=== PATIENT | female | born 1940 | race Caucasian/White ===

== ENCOUNTER 2021-07-03 19:48 | Inpatient (IN) | payer MEDICARE, OTHER ==
[~2021-07-03] VITALS: Ht 160 cm; Wt 71.7 kg
[~2021-07-03 19:48] MED LIST: ACET325S18 PO; ALBU2.5V13 INH; ALEN70TA80 PO; ASPI-605 PO; BISA-79 RC; CALC-167 PO; CHOL100040 PO; DEXT1CAP3 PO; DOCU100C36 PO; DULO60CA45 PO; GUAI-717 PO; IPRA0.2S49 INH; LEVO112T5 PO; MAGN400O21 PO; MULT-754 PO; SIME80TA14 PO; SIMV10TA98 PO; TRIA115C TP; TRIA80OI TP
--- NOTE | 2021-07-03 19:59 | NUR ---
PT BIBPA TO R/O TB. PT NONVERBAL AT BASELINE BREATHING EVENLY AND UNLABORED. PT ATTACHED TO MONITOR AND POX. MD AT BEDSIDE FOR EVAL. UPON ASSESSMENT,PT ON 2L O2 SATURATING 95%. PT GIVEN BLANKET AND CALL LIGHT WITHIN REACH
[2021-07-03 20:59] LABS: BASOPHILS # (AUTO) 0.1 K/uL (0.0-0.2); BASOPHILS % (AUTO) 1.2 % (0.0-2.0); EOSINOPHILS % (AUTO) 1.9 % (0.0-6.0); HEMATOCRIT 39 % (33-45); HEMOGLOBIN 12.7 g/dL (11.5-14.8); LYMPHOCYTES # (AUTO) 3.2 K/uL (0.8-4.8); LYMPHOCYTES % (AUTO) 30.2 % (20.0-44.0); MEAN CORPUSCULAR HGB CONC 33 g/dl (31.0-36.0); MEAN CORPUSCULAR VOLUME 96 fL (82-100); MONOCYTES # (AUTO) 0.5 K/uL (0.1-1.30); MONOCYTES % (AUTO) 4.6 % (2.0-12.0); NEUTROPHILS # (AUTO) 6.6 K/uL (1.8-8.9); NEUTROPHILS % (AUTO) 62.1 % (43.0-81.0); PLATELET COUNT (AUTO) 231 K/uL (150-450); RED BLOOD CELL COUNT(AUTO) 4.04 MIL/uL (4.0-5.2); WHITE BLOOD COUNT (AUTO) 10.6 K/uL (4.3-11.0)
[2021-07-03 21:06] LABS: CALCIUM, SERUM 8.4 mg/dL (8.5-10.1); CREATININE 0.6 mg/dL (0.6-1.3); POTASSIUM 4.5 mmol/L (3.5-5.1)
--- NOTE | 2021-07-03 22:05 | NUR ---
MRSA SWAB COLLECTED AND SENT TO LAB. PATIENT'S BELONGINGS LIST DONE.
--- NOTE | 2021-07-03 23:15 | NUR ---
RN ADMITTING NOTE RECEIVED PATIENT FROM ER VIA GURNEY ACCOMPANIED BY 2 ER STAFF AND TRANSFERRED TO BED VIA 2 PERSON ASSIST. PT IS AAO X 2, IN NO SIGN OF ACUTE DISTRESS, RESPIRATIONS EVEN AND UNLABORED, SATURATION AT 97% ON 2L VIA NC. COMPREHENSIVE PHYSICAL ASSESSMENT AND PATIENT CARE DONE. NO SKIN ISSUES NOTED. NOTED IV LINE AT R HAND 20G, PATENT AND FLUSHING WELL, NO S/S OF INFECTION OR INFILTRATION NOTED. SAFETY MEASURES AND ISOLATION PRECAUTION IN PLACE, CALL LIGHT WITHIN REACH OF PATIENT, BED ON LOWEST POSITION, SIDE RAILS UP X 3. WILL CONTINUE MONITOR AND ASSESS THROUGHOUT THE SHIFT. WILL CARRY OUT MD ORDERS ACCORDINGLY.
--- NOTE | 2021-07-03 23:21 | NUR ---
PT TRANSPORTED TO UNIT ON GURNEY WITH EMT AND RN AT BEDSIDE W/ ACLS PROTOCOL. NAD NOTED DURING TRANSPORT.
--- NOTE | 2021-07-03 23:25 | NUR ---
TRANSFER TO ROOM 101 VIA ACLS PROTOCOL ADMITTING NURSE AT BEDSIDE
--- NOTE | 2021-07-03 23:50 | NUR ---
Dina weiner in [facility] - 07/03/21 at 2352 by PARKER MD SPEAKING WITH DR VELARDE FROM [facility]
--- NOTE | 2021-07-03 23:50 | NUR ---
SPEAKING WITH DR VELARDE FROM [facility]
[2021-07-04] VITALS (7 sets, daily range): BP systolic 100–128; BP diastolic 44–79
[2021-07-04] MEDS ORDERED: ZOLPIDEM TARTRATE 5 MG TABLET PO PRN (02:00)
[2021-07-04] MEDS ORDERED: ALBUTEROL FS 2.5 MG/0.5 ML VIAL.NEB INH ONE (02:00)
[2021-07-04] MEDS ORDERED: BISACODYL (5 MG) 5 MG TABLET.DR PO SCH (02:00)
[2021-07-04] MEDS ORDERED: ONDANSETRON HCL/PF 4 MG/2 ML VIAL IVP PRN (02:00)
[2021-07-04] MEDS ORDERED: SIMETHICONE 80 MG TAB.CHEW PO ONE (02:00)
[2021-07-04] MEDS ORDERED: DOCUSATE SODIUM 100 MG CAPSULE PO SCH (02:00)
[2021-07-04] MEDS ORDERED: ACETAMINOPHEN LIQUID 325 MG/10.1 ML UDC PO PRN (02:00)
[2021-07-04] MEDS ORDERED: SIMETHICONE 80 MG TAB.CHEW PO SCH (02:00)
[2021-07-04] MEDS ORDERED: Z GUARD REMEDY 2 OZ OINT TP PRN (02:00)
[2021-07-04] MEDS ORDERED: IPRATROPIUM NEB FS 0.5 MG/2.5 ML AMPUL.NEB INH ONE (02:00)
[2021-07-04] MEDS ORDERED: MAGNESIUM HYDROXIDE 30 ML UDC PO ONE (02:00)
[2021-07-04] MEDS ORDERED: BISACODYL (5 MG) 5 MG TABLET.DR PO PRN (02:14)
[2021-07-04] MEDS ORDERED: DOCUSATE SODIUM 100 MG CAPSULE PO PRN (02:14)
--- NOTE | 2021-07-04 02:38 | NUR ---
RN NOTE SIMETHICONE NON ADMINISTERED - MEDICATION UNAVAILABLE
--- NOTE | 2021-07-04 05:00 | NUR ---
RN NOTE IV LINE AT RHAND 20G PULLED OUT BY PATIENT. REINSERTED ANOTHER IV LINE AT L HAND 20G, PATENT AND FLUSHING WELL. ASEPTIC TECHNIQUE WAS OBSERVED.
[2021-07-04] MEDS ORDERED: ALENDRONATE 70 MG TABLET PO SCH (06:00)
--- NOTE | 2021-07-04 06:30 | NUR ---
RN NOTE FOSAMAX UNAVAILABLE, RESP THER UNABLE TO OVERRIDE, CROWNING HAMMER OPERATOR LISA AWARE, AND WAS TOLD TO CALL PHARMACY AFTER 7AM.
--- NOTE | 2021-07-04 07:00 | NUR ---
RN NOTE REGULAR DIET WAS ORDERED, PER [facility], PT IS ON PUREED DIET WITH NECTAR THICKENED LIQUIDS, ROLEN OF DIETARY WAS NOTIFIED.
--- NOTE | 2021-07-04 07:01 | NUR ---
RN NOTE TELEPHONE CALL TO PHARMACY, SPOKE TO JO ANN, TOLD HER 0600 DOSE OF FOSAMAX STILL NOT GIVEN DUE TO INAVAILABILITY, SHE SAID THEY ARE GOING TO BRING. HYGIENE COORDINATOR AWARE Addendum: 07/04/21 at 0724 by KATHY HANKS RN ENDORSED TO YESENIA ROGERS ATTILA
--- NOTE | 2021-07-04 07:15 | NUR ---
RN NOTE RECEIVED PATIENT ON BED ALERT X 1 WITH NO SIGNS OF DISTRESS.
--- NOTE | 2021-07-04 07:15 | NUR ---
RN OPENING NOTES: RECEIVED PT A/OX1 IN BED RESTING COMFORTABLY. PATIENT IN NO S/SX OF ACUTE DISTRESS AT THIS TIME. NO SOB NOTED. PATIENT'S BREATHING IS EVEN AND UNLABORED. PATIENT IS ON ROOM AIR; PATIENT WAS PUT ON OXYGEN AT 2LPM VIA NC BUT KEEPS ON REMOVING IT, SATURATING AT 92-93%. TOLERATING WELL. WITH IV SITE ON LEFT HAND G20 ON SALINE LOCK; PATENT, INTACT AND FLUSHING WELL; HEAD OF BED ELEVATED. BED IS LOCKED, IN LOWEST POSITION AND SIDE RAILS UP. CALL LIGHT WITHIN REACH OF THE PATIENT. APPLICABLE ISOLATION PRECAUTIONS IN PLACE. WILL CONTINUE TO MONITOR PATIENT.
[2021-07-04] MEDS ORDERED: TRIAMCINOLONE TP SCH (09:00)
[2021-07-04] MEDS ORDERED: [UNRECOGNIZED DRUG - OTHER] TP SCH (09:00)
[2021-07-04] MEDS: MULTIVITAMINS,THERAGRAN 1 UDTAB TABLET PO SCH (09:39)
[2021-07-04] MEDS: LEVOTHYROXINE SODIUM 112 MCG TABLET PO SCH (09:39)
[2021-07-04] MEDS: ASPIRIN EC 81 MG TABLET.DR PO SCH (09:39)
[2021-07-04] MEDS: DULOXETINE HCL 30 MG CAPSULE.DR PO SCH (10:00)
[2021-07-04 12:57] LABS: ALBUMIN 3.1 g/dL (3.4-5.0); BILIRUBIN,TOTAL 0.6 mg/dL (0.2-1.0); CALCIUM, SERUM 8.6 mg/dL (8.5-10.1); CREATININE 0.7 mg/dL (0.6-1.3); POTASSIUM 4.5 mmol/L (3.5-5.1); TOTAL PROTEIN, SERUM 6.9 g/dL (6.4-8.2)
--- NOTE | 2021-07-04 16:00 | NUR ---
RN NOTE TRIED TO COLLECT SPUTUM FROM PATIENT BUT UNABLE TO COLLECT SPUTUM. WILL CONTINUE TO MONITOR PATIENT.
[2021-07-04] MEDS ORDERED: GABAPENTIN 100 MG CAPSULE PO SCH (17:00)
[2021-07-04] MEDS: TRIAMCINOLONE ACETONIDE 0.1% CR 15 GM TUBE TP SCH (17:25)
[2021-07-04] MEDS: busPIRone 5 MG TABLET PO SCH (17:25)
[2021-07-04] MEDS: SIMVASTATIN 10 MG TABLET PO SCH (18:13)
--- NOTE | 2021-07-04 19:00 | NUR ---
RN CLOSING NOTES: PT A/OX1 IN BED RESTING COMFORTABLY. PATIENT IN NO S/SX OF ACUTE DISTRESS AT THIS TIME. NO SOB NOTED. PATIENT'S BREATHING IS EVEN AND UNLABORED. PATIENT IS ON ROOM AIR; KEEPS ON REMOVING OXYGEN AND SATURATION DROPS TO 88%. TOLERATING WELL. WITH IV SITE ON LEFT HAND G20 ON SALINE LOCK; PATENT, INTACT AND FLUSHING WELL; URINE COLLECTED ORDERED AND PLACED IN THE FRIDGE. HEAD OF BED ELEVATED. BED IS LOCKED, IN LOWEST POSITION AND SIDE RAILS UP. CALL LIGHT WITHIN REACH OF THE PATIENT. APPLICABLE ISOLATION PRECAUTIONS IN PLACE. ENDORSED PATIENT FOR CONTINUITY OF CARE.
--- NOTE | 2021-07-04 19:48 | NUR ---
RN NOTE PATIENT AWAKE, ALERT AND ORIENTED X1. ON O2 2L VIA NASAL CANNULA O2 SAT 93%, NEEDS FREQUENT REMINDERS TO NOT REMOVE NASAL CANNULA. NO SIGNS OF DISCOMFORT AT THIS TIME. IV ACCESS ON LEFT ARM #22 PATENT AND INTACT. NO SIGNS OF INFILTRATION. BED LOCKED AND IN LOWEST POSITION. CALL LIGHT WITHIN REACH. ALL NEEDS ANTICIPATED.
[2021-07-05] VITALS: BP 107/66
[2021-07-05 04:00] VITALS: BP 147/60
[2021-07-05 06:12] LABS: BASOPHILS % (AUTO) 0.3 % (0.0-2.0); EOSINOPHILS % (AUTO) 1.6 % (0.0-6.0); HEMATOCRIT 38 % (33-45); HEMOGLOBIN 12.7 g/dL (11.5-14.8); LYMPHOCYTES # (AUTO) 2.9 K/uL (0.8-4.8); MEAN CORPUSCULAR HGB CONC 34 g/dl (31.0-36.0); MEAN CORPUSCULAR VOLUME 95 fL (82-100); MONOCYTES # (AUTO) 0.6 K/uL (0.1-1.30); MONOCYTES % (AUTO) 5.9 % (2.0-12.0); NEUTROPHILS # (AUTO) 5.8 K/uL (1.8-8.9); NEUTROPHILS % (AUTO) 61.2 % (43.0-81.0); PLATELET COUNT (AUTO) 214 K/uL (150-450); RED BLOOD CELL COUNT(AUTO) 3.93 MIL/uL (4.0-5.2); WHITE BLOOD COUNT (AUTO) 9.5 K/uL (4.3-11.0)
--- NOTE | 2021-07-05 07:10 | NUR ---
RN NOTE PATIENT ALERT AND ORIENTED X1. ON O2 2L VIA NASAL CANNULA O2 SAT 92%, NEEDS FREQUENT REMINDERS TO NOT REMOVE NASAL CANNULA. IV ACCESS ON LEFT ARM #22 PATENT AND INTACT. NO SIGNS OF INFILTRATION. TURNED AND REPOSITIONED. KEPT CLEAN AND DRY. BED LOCKED AND IN LOWEST POSITION. CALL LIGHT WITHIN REACH. WILL ENDORSE TO AM SHIFT.
[2021-07-05 07:31] LABS: CREATININE 0.6 mg/dL (0.6-1.3); MAGNESIUM 2.3 mg/dL (1.8-2.4); PHOSPHORUS 4.3 mg/dL (2.5-4.9); POTASSIUM 4.1 mmol/L (3.5-5.1)
--- NOTE | 2021-07-05 07:39 | NUR ---
RN OPENING NOTES Pt is Awake, responsive to stimuli, non responsive, no SOB. HOB on semi-fowlers position, safety precautions implemented, bed locked in lowest position, call light within reach.
--- NOTE | 2021-07-05 07:52 | NUR ---
RN OPENING NOTE Pt is Awake, A/O X 4, no respiratory distress, no SOB. Sinus rhythm, safety precautions implemented, bed locked in lowest position, call light within reach.
[2021-07-05 08:00] VITALS: BP 119/60
[2021-07-05] MEDS: LEVOTHYROXINE SODIUM 112 MCG TABLET PO SCH (09:15)
[2021-07-05] MEDS: ASPIRIN EC 81 MG TABLET.DR PO SCH (09:15)
[2021-07-05] MEDS: busPIRone 5 MG TABLET PO SCH ×2 (09:16→17:26)
[2021-07-05] MEDS: DULOXETINE HCL 30 MG CAPSULE.DR PO SCH (09:18)
[2021-07-05] MEDS: TRIAMCINOLONE ACETONIDE 0.1% CR 15 GM TUBE TP SCH ×2 (09:19→17:27)
[2021-07-05] MEDS: MULTIVITAMINS,THERAGRAN 1 UDTAB TABLET PO SCH (09:19)
[2021-07-05] MEDS ORDERED: SODIUM CL FOR INHALATION 3% 15 ML VIAL.NEB IH ONE (11:30)
[2021-07-05 12:00] VITALS: BP 142/69
--- NOTE | 2021-07-05 12:16 | NUR ---
RN NOTE 1100-Seen by ID MANAGER FIRE gave order for collection sputum to R/O TB. 1130-RT made aware with recomendation for Hypertonic solution NS x 1 to induce-approved by ID MANAGER FIRE. 1215-RT collected sputum via sample via NG route. Will send sample to lab.
--- NOTE | 2021-07-05 12:26 | NUR ---
RT PATIENT NT SUCTIONED WITH SCANT AMT OF PALE YELLOW SECRETIONS. SPUTUM SAMPLE COLLECTED AND PLACED IN REFRIGERATOR. PATIENT HAS CLEAR BREATH SOUNDS AND DRY COUGH.
[2021-07-05 14:50] LABS: BILIRUBIN,URINE NEGATIVE (NEGATIVE); COLOR,URINE YELLOW (YELLOW); LEUKOCYTE ESTERASE ,URINE NEGATIVE (NEGATIVE); NITRITE, URINE POSITIVE (NEGATIVE); PH,URINE 5.5 (5.0-8.0); PROTEIN,URINE NEGATIVE (NEGATIVE); UGLUCOSE NEGATIVE (NEGATIVE); UROBILINOGEN,URINE 0.2 EU/dL (0.2)
[2021-07-05 14:59] LABS: BACTERIA,URINE 1+ /HPF (None Seen)
[2021-07-05 15:00] LABS: URINE AMORPHOUS URATE Moderate /HPF (None Seen)
[2021-07-05 16:00] VITALS: BP 134/71
[2021-07-05] MEDS: SIMVASTATIN 10 MG TABLET PO SCH (17:26)
--- NOTE | 2021-07-05 18:29 | NUR ---
HOTEL FRONT OFFICE MANAGER NOTE Pt D/C back to SNF, left in stable condition, she has no s/sx of TB, no fever, no cough, no night sweats noted. Per Pulmo patient is clear to go back to SNF. Left in stable condition, pertinent info sent with transportation. CM will notify daughter as well.
== END 2021-07-05 18:44 | DRG 178 ==
LOC: ER 19:52 → TELE1 22:15
PROVIDERS: ADMIT Internal Medicine; ATTEND Nurse Practitioner Acute Care
DX: R76.11 Nonspecific reaction to tuberculin skin test without active tuberculosis (principal); I69.354 Hemiplegia and hemiparesis following cerebral infarction affecting left non-dominant side; J98.11 Atelectasis; F01.51 Vascular dementia, unspecified severity, with behavioral disturbance; F05 Delirium due to known physiological condition; F32.9 Major depressive disorder, single episode, unspecified; E78.5 Hyperlipidemia, unspecified; F41.9 Anxiety disorder, unspecified; I11.0 Hypertensive heart disease with heart failure; E03.9 Hypothyroidism, unspecified; Z20.822 Contact with and (suspected) exposure to COVID-19; I50.9 Heart failure, unspecified; I70.0 Atherosclerosis of aorta; R13.10 Dysphagia, unspecified; M81.0 Age-related osteoporosis without current pathological fracture; Z79.82 Long term (current) use of aspirin; Z79.51 Long term (current) use of inhaled steroids; Z79.83 Long term (current) use of bisphosphonates; F09 Unspecified mental disorder due to known physiological condition; F39 Unspecified mood [affective] disorder; E83.51 Hypocalcemia; Z86.16 Personal history of COVID-19; Z90.49 Acquired absence of other specified parts of digestive tract; J44.9 Chronic obstructive pulmonary disease, unspecified
CPT/HCPCS: 31720; 36415; 71045-TC; 71250-TC; 80048-TC; 80053-TC; 80061-TC; 81001; 83735-TC; 84100-TC; 85025-TC; 87081-TC; 87086-TC; 87116; 87206; 94640-TC; 99082-TC; A4218; G0378; U0003